=== PATIENT | male | born 1935 | race Caucasian/White ===

== ENCOUNTER 2021-01-13 18:30 | Inpatient (IN) | payer MEDICARE, OTHER ==
[~2021-01-13] VITALS: Ht 170.2 cm; Wt 71.7 kg
[2021-01-13 18:32] VITALS: BP 95/59
[2021-01-13] MEDS ORDERED: ELIQUIS5 MG PO (18:44)
[2021-01-13] MEDS ORDERED: LIPITOR40 MG PO (18:44)
[2021-01-13] MEDS ORDERED: CARAFATE 1 GM TA1 G1 PO (18:44)
[2021-01-13] MEDS ORDERED: DOXAZOSIN MESYLA4 MG PO (18:44)
[2021-01-13] MEDS ORDERED: LOPRESSOR50 MG PO (18:45)
[2021-01-13] MEDS ORDERED: LEVO-T75 MCG PO (18:45)
[2021-01-13] MEDS ORDERED: LANTUS SUBQ (18:45)
[2021-01-13] MEDS ORDERED: NEXIUM40 MG PO (18:46)
[2021-01-13 18:52] LABS: ABSOLUTE EOSINOPHILS 0.2 thou/uL (0.0-0.7); ABSOLUTE LYMPHOCYTES 1.1 thou/uL (0.8-5.3); ABSOLUTE MONOCYTES 0.8 thou/uL (0.0-1.2); ABSOLUTE NEUTROPHILS 5.9 thou/uL (1.6-8.1); BASOPHILS 0.6 %; EOSINOPHILS 2.7 %; HEMATOCRIT 37.1 % (42.0-52.0); HEMOGLOBIN 12.3 gm/dL (14.0-18.0); MCH 28.4 pg (26.0-34.0); MCHC 33.1 g/dL (28.0-37.0); MCV 85.6 fL (80.0-100.0); MONOCYTES 9.7 %; MPV 8.3 fl. (7.2-11.1); NUCLEATED RBCS 0 /100WBC; PLATELET COUNT* 142 thou/uL (150-400); RBC 4.33 mil/uL (4.50-6.00); RDW-CV 17.6 % (10.5-14.5)
[2021-01-13 19:00] LABS: CALCIUM 8.5 mg/dL (8.5-10.1); CREATININE 0.9 mg/dL (0.6-1.3); POTASSIUM 4.4 mmol/L (3.5-5.1)
[2021-01-13 19:05] LABS: ALBUMIN 2.5 g/dL (3.4-5.0); TOTAL BILIRUBIN 0.7 mg/dL (<0.1-1.0); TOTAL PROTEIN 7.5 g/dL (6.4-8.2)
[2021-01-13 21:38] LABS: BE 4.6 mmol/L (-2 to +3); pH 7.388 (7.340-7.450)
[2021-01-13 21:40] LABS: PCO2 52.1 mmHg (35.0-45.0)
[2021-01-13 21:41] LABS: PO2 137.8 mmHg (75.0-100.0)
[2021-01-14] VITALS (7 sets, daily range): BP systolic 92–112; BP diastolic 50–59
[2021-01-14 12:35] LABS: URINE BILIRUBIN NEGATIVE (Negative); URINE BLOOD NEGATIVE (Negative); URINE CLARITY CLEAR; URINE COLOR YELLOW; URINE GLUCOSE-RANDOM NEGATIVE (Negative); URINE KETONES 1+ (Negative); URINE LEUKOCYTES-REFLEX NEGATIVE (Negative); URINE NITRITE-REFLEX NEGATIVE (Negative); URINE PROTEIN NEGATIVE (Negative); URINE SPECIFIC GRAVITY 1.015 (1.005-1.030); URINE UROBILINOGEN 0.2 E.U./dl (0.2-1.0)
--- NOTE | 2021-01-14 12:48 | EKG ---
[place] [address] ELECTROCARDIOGRAM REPORT Name: CORINA OHARA Room: [place] [address] ADM IN [facility]#: [id number] Admission: 01/13/21 Attend Phys: Massiel Berry, Discharge: Date of : 35 Date of Service: 01/13/21 1835 Report #: [id number] THIS REPORT FOR: //name// [facility] ED Test Date: 2021-01-13 Test Time: 18:35:19 Pat Name: CORINA OHARA Department: Room: [facility] Gender: M Hub Lead: BECK : 1935 Requested By: Jong Black Order Number: [id number] MD: Nathen Lennon Measurements Intervals Anthon Rate: 74 P: 52 OR: 207 QRS: 93 QRSD: 130 T: 30 QT: 385 QTc: 428 Interpretive Statements Sinus rhythm Probable left atrial enlargement IVCD, consider atypical RBBB No previous ECG available for comparison Electronically Signed On 01-14-2021 12:48:45 CDT by Nathen Lennon [email or web address] <ELECTRONICALLY SIGNED> By: Nathen Lennon MD, FACC 01/14/21 1248 1835 1835 Nathen Lennon MD, FAC /EPI
--- NOTE | 2021-01-14 13:49 | NUR ---
PT MOVED FROM ROOM ER 2 TO ER 4 SO PT AND CAN WATCH T.V. RECLINER CHAIR ALSO MOVED TO ROOM 4. PT IS IN HOSPITAL BED. SITTING UP IN BED WATCHING T.V.
--- NOTE | 2021-01-14 18:03 | NUR ---
TUBE FEEDING STARTED AT 105MLS/HR.
[2021-01-14 21:06] LABS: BE -2.7 mmol/L (-2 to +3); PCO2 41.8 mmHg (35.0-45.0); PO2 61.6 mmHg (75.0-100.0); pH 7.354 (7.340-7.450)
[2021-01-15 03:15] VITALS: BP 103/50
[2021-01-15 07:00] VITALS: BP 103/50
--- NOTE | 2021-01-15 13:26 | 2DMMODE ---
[place] [address] 2 D/M-MODE ECHOCARDIOGRAM Name: CORINA OHARA Room: [address] IN [facility]#: [id number] Admission: 01/13/21 Attend Phys: Massiel Berry, Discharge: Date of : 35 Date of Service: 01/15/21 1326 Report #: [id number] THIS REPORT FOR: cc: Juan Antonio Herrera MD, Louis A. MD Holkins, John M. MD [facility] ~ APPROVED REPORT Study performed: 01/15/2021 10:05:33 EXAM: Comprehensive 2D, Doppler, and color-flow Echocardiogram Patient Location: In-Patient Room #: [facility] Status: routine BSA: 1.83 HR: 84 bpm BP: 103/50 mmHg Rhythm: NSR Other Information Study Quality: Good Indications Bradycardia 2D Dimensions IVSd: 9.92 (7-11mm) LVOT Diam: 21.84 (18-24mm) LVDd: 36.63 mm PWd: 7.92 (7-11mm) Ascending Ao: 35.84 (22-36mm) LVDs: 18.01 (25-40mm) Aortic Root: 30.70 mm Volumes Left Atrial Volume (Systole) LA ESV Index: 28.30 mL/m2 Aortic Valve AoV Peak Toni.: 1.74 m/s AO Peak Gr.: 12.16 mmHg LVOT Max P.71 mmHg AO Mean Gr.: 7.59 mmHg LVOT Mean P.97 mmHg LVOT Max V: 0.96 m/s AO V2 VTI: 34.50 cm LVOT Mean V: 0.65 m/s ALEXIA (VTI): 2.00 cm2 LVOT V1 VTI: 18.40 [place] [address] 2 D/M-MODE ECHOCARDIOGRAM Name: CORINA OHARA Room: [address] IN [facility]#: [id number] Admission: 01/13/21 Attend Phys: Massiel Berry, Discharge: Date of : 35 Date of Service: 01/15/21 1326 Report #: [id number] Mitral Valve E/A Ratio: 0.78 MV Decel. Time: 215.48 ms MV E Max Toni.: 0.89 m/s MV PHT: 62.49 ms MVA (PHT): 3.52 cm2 TDI E/Lateral E': 12.71 E/Medial E': 12.71 Medial E' Toni.: 0.07 m/s Lateral E' Toni.: 0.07 m/s Pulmonary Valve PV Peak Toni.: 0.90 m/s PV Peak Gr.: 3.21 mmHg Tricuspid Valve RAP Estimate: 5.00 mmHg TR Peak Gr.: 42.44 mmHg RVSP: 47.00 mmHg PA Pressure: 47.00 mmHg Left Ventricle The left ventricle is normal size. There is normal LV segmental wall motion. There is normal left ventricular wall thickness. Left ventricular systolic function is normal. The left ventricular ejection fraction is within the normal range. LVEF is 60-65%. Grade I - abnormal relaxation pattern. Right Ventricle The right ventricle is normal size. The right ventricular systolic function is normal. Atria The left atrium size is normal. The right atrium size is normal. Aortic Valve Mild aortic valve sclerosis. Mild aortic regurgitation. No hemodynamically significant valvular aortic stenosis. Mitral Valve The mitral valve is normal in structure. Trace mitral regurgitation. No evidence of mitral valve stenosis. Tricuspid Valve The tricuspid valve is normal in structure. Mild tricuspid regurgitation. [place] [address] 2 D/M-MODE ECHOCARDIOGRAM Name: CORINA OHARA Room: [address]#: [id number] Admission: 01/13/21 Attend Phys: Massiel Berry, Discharge: Date of : 35 Date of Service: 01/15/21 1326 Report #: [id number] Pulmonic Valve The pulmonary valve is normal in structure. Mild pulmonic regurgitation. Great Vessels The aortic root is normal in size. IVC is normal in size and collapses >50% with inspiration. Pericardium There is no pericardial effusion. <Conclusion> The left ventricle is normal size. There is normal left ventricular wall thickness. Left ventricular systolic function is normal. The left ventricular ejection fraction is within the normal range. LVEF is 60-65%. Grade I - abnormal relaxation pattern. The right ventricle is normal size. The left atrium size is normal. Mild aortic valve sclerosis. Mild aortic regurgitation. No hemodynamically significant valvular aortic stenosis. The mitral valve is normal in structure. Trace mitral regurgitation. The tricuspid valve is normal in structure. Mild tricuspid regurgitation. Moderate pulmonary hypertension. IVC is normal in size and collapses >50% with inspiration. There is no pericardial effusion. There is normal LV segmental wall motion. <ELECTRONICALLY SIGNED> By: Michael Ardon MD, FACC 01/15/21 1326 25 25 Michael Ardon MD, FACC /INF
--- NOTE | 2021-01-15 15:51 | NUR ---
CM ASSESSMENT: CM SPOKE TO THE PT AND HIS SPOUSE AT THE BEDSIDE. PT A&O, NORMALLY INDEPENDENT WITH ADL'S. PT RESIDES AT HOME WITH SPOUSE. PT USES 0 DME, BUT OWNS A WALKER AND A CANE. PT HAS 0 HX OF HH OR SNF. PT'S SPOUSE INFORMS THAT SHE DOES THE PT'S TUBE FEEDINGS HERSELF AT HOME. PT'S SPOUSE DOES ALL COOKING, CLEANING, AND DRIVING. CM WILL REMAIN AVAILABLE TO ASSIST AND FOLLOW NEEDED.
[2021-01-15 16:00] VITALS: BP 120/67
[2021-01-15 20:00] VITALS: BP 134/72
--- NOTE | 2021-01-15 20:00 | NUR ---
RECEIVED REPORT AND ASSUMED CARE OF PT, ASSESSMENT COMPLETED. STAYING AT BEDSIDE AND ASSISTING PT ALSO. 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 ICE CHIPS OCC FOR MOISTURE. TUBE FEEDING STARTED PER PEG TUBE AT 105 CC/HR OF GLYCERNIA. PT STATES HE WILL MOVE HIMSELF IN BED FOR COMFORT. TELEMETRY ON SHOWING SR WITH BBB. WILL CONT TO MONITOR AND ASSIST NEEDED.
[2021-01-16] VITALS (9 sets, daily range): BP systolic 105–130; BP diastolic 59–75
--- NOTE | 2021-01-16 06:30 | NUR ---
AWAKE FREQ DURING NIGHT. UPTO BSC, TOTAL OF 3 LIQ STOOLS. TUBE FEEDING INFUSED DURING HS. SITE VERY EXCORIATED AND LEAKING BILE, DRSG CHANGED, INTRADRY APPLIED. HS GOALS OF REST AND SAFETY APPLIED. HOURLY ROUNDING OBSERVED.
--- NOTE | 2021-01-16 09:36 | NUR ---
WOUND NURSE: PATIENT SEEN TO ADDRESS MINOR CONTUSION ON THE LEFT MEDIAL MALLEOLUS WHICH PATIENT AND REPORTS OCCURRED AFTER THE FIRST TIME OF WEARING COMPRESSION STOCKINGS PRESCRIBED BY A PHYSICIAN AT [facility]. THERE ARE 2 SMALL RUPTURED BULLAE WITHIN AN AREA MEASURING 7.3 X 1.0 X 0.1 CM. PRESENTS WITH PARTIAL THICKNESS TISSUE LOSS WITH PINKISH RED NONGRANULATING TISSUE IN THE WOUND BED. PEDAL PULSES ARE PRESENT AND CAPILLARY REFILL IS <3 SECONDS. FOOT IS WARM AND PINK WITH 1 PLUS PITTING PEDAL EDEMA. CLEANSED WITH WOUND CLEANSER AND GAUZE, APPLIED SKIN PREP TO PERIWOUND APPLIED OPTIFOAM GENTLE AG TO AFFECTED AREA. WRAPPED WITH KERLEX ROLL GAUZE AND SECURED WITH TAPE. PATIENT INSTRUCTED ON MEASURES TO PROMOTE HEALING AND PREVENT COMPLICATIONS. PATIENT ALREADY GOES TO DR AT [facility] FOR WOUND CARE BUT LIVES IN [place]. PATIENT AND HIS WAS PROVIDED INFORMATION THAT THERE IS A WCC HERE AT [facility] IF THEY EVER NEED WOUND CARE AT A CLOSER FACILITY.
--- NOTE | 2021-01-16 12:14 | NUR ---
THIS ASSOCIATE ARTISTIC DIRECTOR IS IN AGREEMENT WITH DOCUMENTED EVALUATION BY TYLER FORBES FOR THIS DAY. AGUILAR CABEZAST
--- NOTE | 2021-01-16 13:49 | NUR ---
PHYSICIAN INFORMS OF PLAN FOR THE PT TO D/C HOME TODAY WITH HH PENDING PACEMAKER INTERROGATION. CM SPOKE TO THE PT AND HIS SPOUSE TO DISCUSS HH AT D/C. PT AND SPOUSE DECLINE HH AT THIS TIME DESPITE EDUCATION AND ENCOURAGEMENT. RN INFORMED. CM WILL REMAIN AVAILABLE TO ASSIST AND FOLLOW NEEDED.
[2021-01-16] MEDS ORDERED: LEVOFLOXACIN500 MG PO (15:47)
--- NOTE | 2021-01-16 18:00 | NUR ---
RECEIVED REPORT. ASSUMED CARE OF PT AROUND 0730. AM ASSESSMENT AND VITALS COMPLETED CHARTED. MEDS PER EMAR. PACEMAKER INTERROGATED. CONSULTS SIGNED OFF. DISCHARGE ORDERS RECEIVED. DISCHARGE COMPLETED DOCUMENTED. ROLLED HAM LACER AND IV REMOVED. ALL BELONGINGS GATHERED AND SENT HOME WITH PT. DRESSING TO LEFT ANKLE CHANGED TODAY BY WOUND RN. PT AWARE TO FOLLOW UP WITH HIS CURRENT WOUND CARE CLINIC AT [facility]. DRESSING TO PEG TUB [facility] AT [place]. PT AND AWARE OF FOLLOW UPS AND NEW ANTIBIOTIC. PT LEFT UNIT WITH NURSING STAFF. PT LEFT HOSPITAL IN CAR WITH SPOUSE.
== END 2021-01-16 18:15 | disposition home or self-care (01) | DRG 308 ==
LOC: M.ERS 18:30 → M.2W 21:38 → M.TBA-ER 21:38 → M.2W 01-15 07:10
PROVIDERS: Family Medicine; Personal Emergency Response Attendant; ADMIT Internal Medicine; ATTEND Internal Medicine
PROC: 4B02XSZ Measurement of Cardiac Pacemaker, External Approach (ICD-10-PCS; principal; 2021-01-16)
DX: R00.1 Bradycardia, unspecified (principal); J18.9 Pneumonia, unspecified organism; J90 Pleural effusion, not elsewhere classified; E11.9 Type 2 diabetes mellitus without complications; I10 Essential (primary) hypertension; E03.9 Hypothyroidism, unspecified; E78.5 Hyperlipidemia, unspecified; N40.0 Benign prostatic hyperplasia without lower urinary tract symptoms; I95.9 Hypotension, unspecified; I25.10 Atherosclerotic heart disease of native coronary artery without angina pectoris; Z20.822 Contact with and (suspected) exposure to COVID-19; Z86.718 Personal history of other venous thrombosis and embolism; Z79.4 Long term (current) use of insulin; Z85.01 Personal history of malignant neoplasm of esophagus; Z86.73 Personal history of transient ischemic attack (TIA), and cerebral infarction without residual deficits; Z79.01 Long term (current) use of anticoagulants; Z79.899 Other long term (current) drug therapy; Z95.0 Presence of cardiac pacemaker